=== PATIENT | female | born 1940 | race Caucasian/White ===

== ENCOUNTER 2017-11-17 08:43 | Observation (INO) ==
[2017-11-17] MEDS ORDERED: Aspirin 81 MG TAB.CHEW PO STA (09:00)
--- NOTE | 2017-11-17 09:06 | Emergency Department Note ---
Disposition Clinical Impression: Chest pain, Bronchitis Disposition: Admitted As Inpatient Condition: Fair Referrals: Chiquita Lee CNP [Primary Care Provider] - Forms: ED Satisfaction Letter Time of Disposition: 09:37 Chest Pain HPI - General Chief Complaint: ED Chest Pain Stated Complaint: chest pressure Time Seen by Provider: 11/17/17 08:49 Source: patient Mode of arrival: ambulatory Limitations: no limitations Vital Signs Reviewed: Yes Nursing Notes Reviewed: Yes - History of Present Illness HPI Narrative: Patient is a 77-year-old female with a past medical history of hypertension presents the ED with chief complaint cough and chest pain. Patient states that she has had an intermittent cough for approximately 7 days. States she was seen at urgent care yesterday and told she did not have pneumonia. Patient is discharged home with doxycycline, and his own and Tessalon Perles. States she has not filled these medications yet. Patient returned to our ER today secondary to having worsening chest pain this time on the left side and radiating down her left arm. She denies any shortness of breath, wheezing, stridor, abd pain, nausea, vomiting, diaphoresis, fever. Does report subjective chills. States she went to urgent care yesterday because she was concerned that she could possibly have pneumonia. States she was diagnosed with pneumonia in September 2017 and had similar symptoms. Pt complaint: chest pain, other (cough) Onset (ago): hour(s) Duration: constant Pain Location: left chest Severity: moderate Severity scale (1-10): 4 Quality: dull, other ("discomfort") Pain Radiation: LUE Improves with: nothing Worsens with: nothing Associated symptoms: Reports: cough. Denies: nausea, vomiting, diaphoresis, dyspnea, sense of impending doom, syncope, palpitations, fever, leg swelling Treatments prior to arrival chest pain: none - Related Data On Oral Contraceptives: No Home Medications Medication Instructions Recorded Confirmed Cholecalciferol (D-3) [Vitamin D] 1,000 unit PO DAILY 10/27/16 12/20/16 Cyanocobalamin (B-12) [Vitamin B12] 1 ml IJ QMONTH 10/27/16 12/20/16 Lisinopril [Zestril] 10 mg PO QAM 10/27/16 12/20/16 Lisinopril [Zestril] 20 mg PO QPM 10/27/16 12/20/16 amLODIPine [Norvasc] 5 mg PO QPM 10/27/16 12/20/16 cloNIDine HCl [CloNIDine HCl] 0.1 mg PO DAILY PRN 10/27/16 12/20/16 Calcium Carbonate/Vitamin D3 1 each PO DAILY 12/20/16 12/20/16 [Calcium 500 + Vit D Caplet] Previous Rx's Medication Instructions Recorded Pantoprazole Sodium [Protonix] 40 mg PO DAILY #30 tablet. 10/28/16 Azithromycin [Azithromycin 6-Tab 250 mg PO PER PKG DI #6 tab 09/11/17 Pack] Benzonatate [Tessalon] 200 mg PO TID PRN #30 capsule 09/11/17 GuaiFENesin ER [Mucinex] 1,200 mg PO BID #20 tbbp.12hr 09/11/17 Dicyclomine [Bentyl] 20 mg PO QID PRN #56 capsule 11/10/17 Benzonatate [Tessalon] 200 mg PO TID PRN #20 capsule 11/16/17 Doxycycline 100 mg PO BID #14 capsule 11/16/17 predniSONE [PredniSONE] 20 mg PO BID #10 tablet 11/16/17 Allergies Allergy/AdvReac Type Severity Reaction Status Date / Time Amoxicillin Allergy Difficulty Verified 11/16/17 18:55 Breathing iodine Allergy Rash Verified 11/16/17 18:55 gabapentin AdvReac Dizziness Verified 11/16/17 18:55 All systems ED: reviewed and negative except as stated. Review of Systems: As Per HPI Constitutional: Denies: fever, chills, weakness Cardiovascular: Reports: chest pain. Denies: palpitations, dyspnea on exertion , edema, syncope, paroxysmal nocturnal dyspnea Respiratory: Reports: cough. Denies: dyspnea, wheezes, hemoptysis Gastrointestinal: Denies: abdominal pain, nausea, vomiting, diarrhea Musculoskeletal: Denies: back pain, neck pain Integumentary: Denies: rash Neurological: Denies: headache, weakness, numbness, paresthesias, confusion Chest Pain PMH - Past Medical History Medical history: Reports: non-contributory, hypertension Surgical history: Reports: no surgical history Psychiatric history: Reports: no psych history INDUSTRIAL RENDERER history: Reports: no INDUSTRIAL RENDERER history - Social History Smoking Status: Never smoker Alcohol use: Reports: none Drug use: Reports: none Physical Exam - General Limitations: no limitations General appearance: alert, in no apparent distress - Head Head exam: normal inspection - Eye Eye exam: Present: normal appearance - ENT ENT exam: mucous membranes moist - Neck Neck exam: Present: normal inspection, full ROM, trachea midline. Absent: tenderness - Chest Chest inspection: Present: normal inspection, symmetric chest wall rise. Absent : tenderness - Respiratory Respiratory exam: Present: normal lung sounds bilaterally. Absent: respiratory distress, wheezes, stridor, accessory muscle use - Cardiovascular Cardiovascular exam: Present: regular rate, normal rhythm, normal heart sounds - Abdominal Exam Abdominal exam: Present: soft, Non-Tender, normal bowel sounds - Extremities Exam Extremities exam: Present: normal inspection. Absent: pedal edema - Expanded Lower Extremity Exam Gait: observed and normal - Back Exam Back exam: Present: normal inspection, full ROM. Absent: tenderness - Neurological Exam Neurological exam: Present: alert, oriented X3, CN II-XII intact, normal gait - Psychiatric Psychiatric exam: Present: normal affect, normal mood - Skin Skin exam: Present: warm, dry, intact, normal color. Absent: rash, cyanosis, diaphoresis Course Course Narrative: Patient is a 77-year-old female with a past medical history of hypertension that presents the ED with chief complaint cough and chest pain. Patient states that she has had an intermittent cough for approximately 7 days. States she was seen at urgent care yesterday and told she did not have pneumonia. Patient is discharged home with doxycycline, and his own and Tessalon Perles. States she has not filled these medications yet. Patient returned to our ER today secondary to having worsening chest pain and this time on the left side and radiating down her left arm. She denies any shortness of breath, wheezing, stridor, abd pain, nausea, vomiting, diaphoresis, fever. Does report subjective chills. States she went to urgent care yesterday because she was concerned that she could possibly have pneumonia. States she was diagnosed with pneumonia in September 2017 and had similar symptoms. Patient was seen and examined upon arrival. Patient is a very well/nontoxic appearing 77-year-old female. Vital stable. Afebrile. Alert and oriented 3. Appears in no acute distress. Head normocephalic. Eyes normal inspection. Extraocular movements intact. ENT within normal limits. Neck supple, full range of motion, nontender. Heart RRR. Lungs CTAB. No wheezing, stridor, retractions or any signs of respiratory distress/compromise. Abdomen soft, nontender. Back normal inspection, nontender. Extremities within normal limits. No pedal edema. Neuro no focal neurological deficits noted on exam. Reviewed chest x-ray from yesterday which showed no acute cardiopulmonary abnormalities. Cardiac workup initiated. 324 mg ASA chewable tablet given. Plan to reevaluate. She does not want anything for pain at this time Discussed case with Dr. Andrew. He is aware of patient. Pt had a nuclear stress test in 10/2016 was negative for ischemia. EKG sinus bradycardia. No changes from previous EKG done on 10/27/16 Troponin negative. Plan to admit patient to medicine for chest pain rule out. Pt agrees with treatment plan. Dr. Lopez had [id number] time with patient and agrees with assessment and treatment plan. Dr. Salvador accepted patient. No other requests at this time. Vital Signs Temperature 97.7 F 11/17/17 08:45 Pulse Rate 62 11/17/17 08:45 Respiratory Rate 18 11/17/17 08:45 Blood Pressure 171/91 11/17/17 08:45 O2 Sat by Pulse Oximetry 99 11/17/17 08:45 Temperature 97.7 F 11/17/17 08:45 Pulse Rate 62 11/17/17 09:40 Respiratory Rate 14 11/17/17 09:40 Blood Pressure 199/89 11/17/17 09:40 O2 Sat by Pulse Oximetry 99 11/17/17 09:40 Oxygen Delivery Oxygen Delivery Room Air Chest Pain - Medical Records Medical records reviewed: Yes I reviewed the patient's medical records. - Lab Data Lab results reviewed: Yes I reviewed the patient's lab results. Result diagrams: 11/17/17 09:17 11/17/17 09:17 Lab Results 11/17/17 11/17/17 11/17/17 Range/Units 09:17 09:17 09:17 WBC 5.3 (4.3-11.1) K/mcL RBC 4.09 (3.82-4.97) M/mcL Hgb 12.7 (11.5-15.4) g/dL Hct 39.2 (35.3-44.9) % MCV 95.8 (83.0-100.0) fL MCH 31.1 (28.0-33.3) pg MCHC 32.4 (31.6-35.5) g/dL RDW 12.2 (11.5-14.5) % Plt Count 212 (140-400) K/mcL MPV 9.1 L (9.4-12.4) fL Immature Gran % 0.2 (0-4) % Seg Neutrophils % 62.4 % Lymphocytes % 26.5 % Monocytes % 9.4 % Eosinophils % 1.1 % Basophils % 0.4 % Neutrophils # 3.3 (1.6-8.9) K/mcL Lymphocytes # 1.4 (0.6-4.6) K/mcL Monocytes # 0.5 (0.0-1.3) K/mcL Eosinophils # 0.1 (0.0-0.6) K/mcL Basophils # 0.0 (0.0-0.2) K/mcL PT 10.2 (9.4-12.1) Seconds INR 1.0 APTT 29.8 (26.0-36.0) Seconds Sodium 138 (136-145) mEq/L Potassium 4.5 (3.5-5.1) mEq/L Chloride 104 (98-107) mEq/L Carbon Dioxide 30 H (23-29) mEq/L BUN 12 (8-23) mg/dL Creatinine 0.73 (0.60-1.20) mg/dL Est GFR ( Amer) > 60 (> 60) Est GFR (Non-Af Amer) > 60 (> 60) BUN/Creatinine Ratio 16 (6-26) Glucose 99 (70-105) mg/dL Calculated Osmolality 286 (280-300) Calcium 9.6 (8.6-10.3) mg/dL Troponin I (< 0.04) ng/mL 11/17/17 Range/Units 09:17 WBC (4.3-11.1) K/mcL RBC (3.82-4.97) M/mcL Hgb (11.5-15.4) g/dL Hct (35.3-44.9) % MCV (83.0-100.0) fL MCH (28.0-33.3) pg MCHC (31.6-35.5) g/dL RDW (11.5-14.5) % Plt Count (140-400) K/mcL MPV (9.4-12.4) fL Immature Gran % (0-4) % Seg Neutrophils % % Lymphocytes % % Monocytes % % Eosinophils % % Basophils % % Neutrophils # (1.6-8.9) K/mcL Lymphocytes # (0.6-4.6) K/mcL Monocytes # (0.0-1.3) K/mcL Eosinophils # (0.0-0.6) K/mcL Basophils # (0.0-0.2) K/mcL PT (9.4-12.1) Seconds INR APTT (26.0-36.0) Seconds Sodium (136-145) mEq/L Potassium (3.5-5.1) mEq/L Chloride (98-107) mEq/L Carbon Dioxide (23-29) mEq/L BUN (8-23) mg/dL Creatinine (0.60-1.20) mg/dL Est GFR ( Amer) (> 60) Est GFR (Non-Af Amer) (> 60) BUN/Creatinine Ratio (6-26) Glucose (70-105) mg/dL Calculated Osmolality (280-300) Calcium (8.6-10.3) mg/dL Troponin I < 0.03 (< 0.04) ng/mL - Radiology Data Radiology results reviewed: Yes I reviewed the patient's radiology results. - EKG Data EKG attestation: Yes I reviewed and interpreted this EKG. EKG shows normal: sinus rhythm Rate: bradycardia Rhythm: NSR [place]/QRS: normal When compared to previous EKG there are: no significant changes Interpretation: no acute changes, normal EKG Heart Score - Score History: Slightly Suspicious EKG: Normal Age: Greater than 65 Risk Factors: 1-2 risk factors Troponin: Less than normal limit HEART Score Total: 3
--- NOTE | 2017-11-17 09:06 | Emergency Department Note ---
Disposition Clinical Impression: Chest pain, Bronchitis Disposition: Admitted As Inpatient Condition: Fair General Adult HPI - General Chief complaint: ED Chest Pain Stated complaint: chest pressure Time Seen by Provider: 11/17/17 08:49 Source: patient Limitations: no limitations - History of Present Illness Pain Scale: 4 - Related Data Home Medications Medication Instructions Recorded Confirmed Cholecalciferol (D-3) [Vitamin D] 1,000 unit PO DAILY 10/27/16 11/17/17 Cyanocobalamin (B-12) [Vitamin B12] 1 ml IJ QMONTH 10/27/16 11/17/17 Lisinopril [Zestril] 40 mg PO QPM 10/27/16 11/17/17 cloNIDine HCl [CloNIDine HCl] 0.1 mg PO DAILY 10/27/16 11/17/17 Calcium Carbonate/Vitamin D3 1 tab PO DAILY 12/20/16 11/17/17 [Calcium 500 + Vit D Caplet] LORazepam [Ativan] 0.5 mg PO BID PRN 11/17/17 11/17/17 Previous Rx's Medication Instructions Recorded Dicyclomine [Bentyl] 20 mg PO QID PRN #56 capsule 11/10/17 Allergies Allergy/AdvReac Type Severity Reaction Status Date / Time Amoxicillin Allergy Difficulty Verified 11/16/17 18:55 Breathing iodine Allergy Rash Verified 11/16/17 18:55 gabapentin AdvReac Dizziness Verified 11/16/17 18:55 Past Medical History - Past Medical History Medical history: Reports: non-contributory, hypertension Surgical history: Reports: no surgical history Psychiatric history: Reports: no psych history RAW MATERIAL HANDLER history: Reports: no RAW MATERIAL HANDLER history - Social History Smoking Status: Never smoker Smokeless Tobacco Status: No Alcohol use: Reports: none Drug use: Reports: none Physical Exam - General Limitations: no limitations General appearance: alert Course Vital Signs Temperature 97.7 F 11/17/17 08:45 Pulse Rate 62 11/17/17 08:45 Respiratory Rate 18 11/17/17 08:45 Blood Pressure 171/91 11/17/17 08:45 O2 Sat by Pulse Oximetry 99 11/17/17 08:45 Temperature 97.7 F 11/17/17 08:45 Pulse Rate 64 11/17/17 10:29 Respiratory Rate 14 11/17/17 10:29 Blood Pressure 166/74 11/17/17 10:29 O2 Sat by Pulse Oximetry 98 11/17/17 10:29 Oxygen Delivery Oxygen Delivery Room Air Medical Decision Making - Lab Data Result diagrams: 11/17/17 09:17 11/17/17 09:17 Lab Results 11/17/17 11/17/17 11/17/17 Range/Units 09:17 09:17 09:17 WBC 5.3 (4.3-11.1) K/mcL RBC 4.09 (3.82-4.97) M/mcL Hgb 12.7 (11.5-15.4) g/dL Hct 39.2 (35.3-44.9) % MCV 95.8 (83.0-100.0) fL MCH 31.1 (28.0-33.3) pg MCHC 32.4 (31.6-35.5) g/dL RDW 12.2 (11.5-14.5) % Plt Count 212 (140-400) K/mcL MPV 9.1 L (9.4-12.4) fL Immature Gran % 0.2 (0-4) % Seg Neutrophils % 62.4 % Lymphocytes % 26.5 % Monocytes % 9.4 % Eosinophils % 1.1 % Basophils % 0.4 % Neutrophils # 3.3 (1.6-8.9) K/mcL Lymphocytes # 1.4 (0.6-4.6) K/mcL Monocytes # 0.5 (0.0-1.3) K/mcL Eosinophils # 0.1 (0.0-0.6) K/mcL Basophils # 0.0 (0.0-0.2) K/mcL PT 10.2 (9.4-12.1) Seconds INR 1.0 APTT 29.8 (26.0-36.0) Seconds Sodium 138 (136-145) mEq/L Potassium 4.5 (3.5-5.1) mEq/L Chloride 104 (98-107) mEq/L Carbon Dioxide 30 H (23-29) mEq/L BUN 12 (8-23) mg/dL Creatinine 0.73 (0.60-1.20) mg/dL Est GFR ( Amer) > 60 (> 60) Est GFR (Non-Af Amer) > 60 (> 60) BUN/Creatinine Ratio 16 (6-26) Glucose 99 (70-105) mg/dL Calculated Osmolality 286 (280-300) Calcium 9.6 (8.6-10.3) mg/dL Troponin I (< 0.04) ng/mL 11/17/17 Range/Units 09:17 WBC (4.3-11.1) K/mcL RBC (3.82-4.97) M/mcL Hgb (11.5-15.4) g/dL Hct (35.3-44.9) % MCV (83.0-100.0) fL MCH (28.0-33.3) pg MCHC (31.6-35.5) g/dL RDW (11.5-14.5) % Plt Count (140-400) K/mcL MPV (9.4-12.4) fL Immature Gran % (0-4) % Seg Neutrophils % % Lymphocytes % % Monocytes % % Eosinophils % % Basophils % % Neutrophils # (1.6-8.9) K/mcL Lymphocytes # (0.6-4.6) K/mcL Monocytes # (0.0-1.3) K/mcL Eosinophils # (0.0-0.6) K/mcL Basophils # (0.0-0.2) K/mcL PT (9.4-12.1) Seconds INR APTT (26.0-36.0) Seconds Sodium (136-145) mEq/L Potassium (3.5-5.1) mEq/L Chloride (98-107) mEq/L Carbon Dioxide (23-29) mEq/L BUN (8-23) mg/dL Creatinine (0.60-1.20) mg/dL Est GFR ( Amer) (> 60) Est GFR (Non-Af Amer) (> 60) BUN/Creatinine Ratio (6-26) Glucose (70-105) mg/dL Calculated Osmolality (280-300) Calcium (8.6-10.3) mg/dL Troponin I < 0.03 (< 0.04) ng/mL Attestation Statement - Attestation Attestation: For this encounter, I have reviewed the MASH GRINDER or PA documentation, treatment plan, and medical decision making; and I have had face to face time with this patient. [id number] time provided Patient arrives complaining of chest discomfort. Patient seen in conjunction with appendectomy the physician equal opportunity assistant. ECG reviewed by me
[2017-11-17 09:23] LABS: Basophils % 0.4 %; Eosinophils # 0.1 K/mcL (0.0-0.6); Eosinophils % 1.1 %; Hematocrit 39.2 % (35.3-44.9); Hemoglobin 12.7 g/dL (11.5-15.4); Immature Granulocytes % 0.2 % (0-4); Lymphocytes # 1.4 K/mcL (0.6-4.6); Lymphocytes % 26.5 %; Mean Corpuscular HGB Conc 32.4 g/dL (31.6-35.5); Mean Corpuscular Hemoglobin 31.1 pg (28.0-33.3); Mean Corpuscular Volume 95.8 fL (83.0-100.0); Mean Platelet Volume 9.1 fL (9.4-12.4); Monocytes # 0.5 K/mcL (0.0-1.3); Monocytes % 9.4 %; Neutrophils # 3.3 K/mcL (1.6-8.9); Platelet Count 212 K/mcL (140-400); Red Blood Count 4.09 M/mcL (3.82-4.97); Red Cell Distribution Width 12.2 % (11.5-14.5); Segmented Neutrophils % 62.4 %
[2017-11-17 09:42] LABS: BUN/Creatinine Ratio 16 (6-26); Blood Urea Nitrogen 12 mg/dL (8-23); Calcium 9.6 mg/dL (8.6-10.3); Carbon Dioxide 30 mEq/L (23-29); Chloride 104 mEq/L (98-107); Glucose 99 mg/dL (70-105); Osmolality,Calculated 286 (280-300); Potassium 4.5 mEq/L (3.5-5.1); Sodium 138 mEq/L (136-145); eGFR For African Americans > 60 (> 60); eGFR For Non-African Americans > 60 (> 60)
[2017-11-17 09:54] LABS: Prothrombin Time 10.2 Seconds (9.4-12.1)
[2017-11-17 09:57] LABS: Activated Partial Thrombo Time 29.8 Seconds (26.0-36.0)
--- NOTE | 2017-11-17 11:42 | Internal Med History&Physical ---
Date of Encounter: 11/17/17 Time of Encounter: 11:38 Assessment and Plan (1) Chest pain Current visit: Yes Status: Acute Chest pain with some typical and some atypical characteristics. Had stress test last year which was negative there is no need for repeat stress test will consult cardiology for follow evaluation or at least OP follow-up Qualifiers: Chest pain type: precordial pain Qualified Code(s): R07.2 - Precordial pain (2) GERD (gastroesophageal reflux disease) Current visit: No Status: Chronic chronic Qualifiers: Esophagitis presence: without esophagitis Qualified Code(s): K21.9 - Gastro -esophageal reflux disease without esophagitis (3) Hypercholesteremia Current visit: No Status: Chronic Chronic will recheck in a.m. (4) Hypertension Current visit: No Status: Chronic Chronic uncontrolled we will adjust her medication Qualifiers: Hypertension type: unspecified secondary hypertension Qualified Code(s): I15.9 - Secondary hypertension, unspecified; I15 - Secondary hypertension (5) Osteoporosis Current visit: No Status: Chronic Chronic Qualifiers: Osteoporosis type: age-related Presence of current pathological fracture: without current pathological fracture Qualified Code(s): M81.0 - Age-related osteoporosis without current pathological fracture Internal Medicine - H&P: HPI Chief complaint: chest pain Admitted From: Emergency Dept Plans for Post Hospital Care: Home History of present illness: Ms. Pichardo is a 77 year old female Patient with history of hypertension, GERD, ostioporosis patient was evaluated last year in October for chest pain had a nuclear stress negative for ischemia and EF was 70% echo was also normal patient with diagnosed in September with pneumonia she had a recent evaluation chest x-ray was normal patient having a cough then developed chest pain describes as discomfort in the chest going to the back of her neck and down the left arm she says she took aspirin and went to bed and happen again today she was concerned and came to the emergency room EKG is unremarkable troponin is negative patient was admitted for further cardiac evaluation. Past Med Surg Social Fam HX - Past Medical History Medical history: non-contributory, hypertension Psychiatric history: no psych history - Past Surgical History Surgical History: no surgical history - Social History Smoking Status: Never smoker Smokeless Tobacco Status: No Alcohol use: none Drug use: none Internal Medicine - H&P: Meds Cholecalciferol (D-3) [Vitamin D] 1,000 unit PO DAILY 10/27/16 [History] Cyanocobalamin (B-12) [Vitamin B12] 1 ml IJ QMONTH 10/27/16 [History] Lisinopril [Zestril] 40 mg PO QPM 10/27/16 [History] cloNIDine HCl [CloNIDine HCl] 0.1 mg PO DAILY 10/27/16 [History] Calcium Carbonate/Vitamin D3 [Calcium 500 + Vit D Caplet] 1 tab PO DAILY [History] Dicyclomine [Bentyl] 20 mg PO QID PRN #56 capsule 11/10/17 [Rx] LORazepam [Ativan] 0.5 mg PO BID PRN 11/17/17 [History] 3 Allergy/AdvReac Type Severity Reaction Status Date / Time Amoxicillin Allergy Difficulty Verified 11/16/17 18:55 Breathing iodine Allergy Rash Verified 11/16/17 18:55 gabapentin AdvReac Dizziness Verified 11/16/17 18:55 All Systems PM: A 10-system review of systems was performed and is negative for pertinent findings except as documented above in the HPI. - Constitutional Constitutional: no chills, no fever(s), no night sweats - EENT Eyes: no change in vision, no discharge, no pain, no photophobia Ears: no ear discharge, no ear pain, no tinnitus Nose, mouth and throat: no dysphagia, no nasal discharge, no neck pain, no sore throat - Cardiovascular Cardiovascular ROS IM: chest pain - Respiratory Respiratory: no cough, no dyspnea, no wheezing, no excessive phlegm production - Gastrointestinal Gastrointestinal: no abdominal pain, no diarrhea, no hematemesis, no hematochezia, no melena, no nausea, no vomiting - Constitutional Vitals: Temp Pulse Resp BP Pulse Ox 97.7 F 64 14 166/74 98 11/17/17 08:45 11/17/17 10:29 11/17/17 10:29 11/17/17 10:29 11/17/17 10:29 - Head Head exam: Present: atraumatic, normocephalic - Eye Eye exam: Present: PERRL, conjuntiva pink, sclera anicteric Pupils: Present: PERRL - Neck Neck exam general surgery: Present: supple, trachea midline. Absent: lymphadenopathy - Respiratory Respiratory exam: Present: CTAB. Absent: accessory muscle use, rales, rhonchi, wheezes - Cardiovascular Cardiovascular exam: Present: RRR, +S1, +S2. Absent: diastolic murmur, gallop, rubs, systolic murmur - GI/Abdominal GI/Abdominal exam: Present: normal bowel sounds, soft, no peritoneal signs. Absent: distended, tenderness - Extremities Exam Extremities exam: Present: warm, radial pulses palpable and symmetrical. Absent : calf tenderness, cyanotic, pedal edema - Neurological Exam Neurological exam: Present: CN II-XII intact, oriented X3, no focal deficits. Absent: pronater drift, facial droop, speech deficit - Skin Skin exam: Present: dry, intact Internal Med - H&P Results - Labs CBC & Chem 7: 11/17/17 09:17 11/17/17 09:17
[2017-11-17] MEDS ORDERED: traMADol 50 MG TABLET PO PRN (11:49)
[2017-11-17] MEDS ORDERED: Acetaminophen 325 MG TABLET PO PRN (11:49)
[2017-11-17] MEDS ORDERED: Naloxone 0.4 MG/ML INJ IVP PRN (11:49)
[2017-11-17] MEDS ORDERED: *HR* LORazepam 0.5 MG TABLET PO PRN (11:51)
[2017-11-17] MEDS: cloNIDine HCl 0.1 MG TABLET PO SCH ×2 (14:10→20:00)
[2017-11-17] MEDS ORDERED: Lisinopril 20 MG TABLET PO SCH (18:00)
[2017-11-18 04:05] LABS: Chol/HDL Ratio 2.4 (0-4.9); Magnesium 2.1 mg/dL (1.6-2.6)
[2017-11-18 06:47] VITALS: BP 154/71
[2017-11-18] MEDS ORDERED: Cholecalciferol (D-3) 1,000 UNIT TABLET PO SCH (09:00)
[2017-11-18] MEDS ORDERED: Isosorbide MONOnitrate (24 HR) 30 MG TAB.ER.24H PO SCH (09:00)
--- NOTE | 2017-11-18 10:35 | Cardiology Consult Note ---
Date of Encounter: 11/18/17 Time of Encounter: 10:33 Assessment and Plan (1) Chest pain Current Visit: Yes Status: Acute Very atypical for angina with negative LUKE. No further cardiac testing needed. Qualifiers: Chest pain type: precordial pain Qualified Code(s): R07.2 - Precordial pain Discussion w patient/family: The assessment and plan as outlined above was discussed with the patient and/or family members who expressed understanding and agreement. All questions were answered. Thank you for involving us in the care of your patient. Please call with any questions. History of Present Illness Consult date: 11/18/17 Requesting physician: Annabelle Thompson Consult reason: Chest pain Chief complaint: Chest pain History of present illness: Ms. Pichardo is a 77 year old female presents with very atypical chest pain. Symptoms occured at rest, improved with exercise and were very brief. Past Med Surg Social Fam HX - Past Medical History Medical history: non-contributory, hypertension Psychiatric history: no psych history - Past Surgical History Surgical History: no surgical history - Social History Smoking Status: Never smoker Smokeless Tobacco Status: No Alcohol use: none Drug use: none - Family History Mother Living Status: Age at : 92 Cause of : CHF, colon cancer Hx Family Cardiac Disorders: Yes (hypotensive, CHF) Hx Family Respiratory Disorders: No Hx Family Cancer: Yes (colon cancer) Hx Family GI Disorders: No Hx Family Genitourinary Disorders: No Hx Family Endocrine Disorder: No Hx Family Musculoskeletal Disorders: No Hx Family Neuromuscular Disorders: No Hx Family Neurologic Disorders: No Hx Family HEENT Disorders: No Hx Family Autoimmune Disorders: No Hx Family Reproductive Disorders: No Hx Family Psychosocial Disorders: No Hx Family Medical Disorders: No Father Living Status: Age at : 48 Cause of : heart, war . Hx Family Cardiac Disorders: Yes Hx Family Respiratory Disorders: No Hx Family Cancer: No Hx Family GI Disorders: No Hx Family Genitourinary Disorders: No Hx Family Endocrine Disorder: No Hx Family Musculoskeletal Disorders: No Hx Family Neuromuscular Disorders: No Hx Family Neurologic Disorders: No Hx Family HEENT Disorders: No Hx Family Autoimmune Disorders: No Hx Family Reproductive Disorders: No Hx Family Psychosocial Disorders: No Hx Family Medical Disorders: No Medications and Allergies Cholecalciferol (D-3) [Vitamin D] 1,000 unit PO DAILY 10/27/16 [History] Cyanocobalamin (B-12) [Vitamin B12] 1 ml IJ QMONTH 10/27/16 [History] Lisinopril [Zestril] 40 mg PO QPM 10/27/16 [History] cloNIDine HCl [CloNIDine HCl] 0.1 mg PO DAILY 10/27/16 [History] Calcium Carbonate/Vitamin D3 [Calcium 500 + Vit D Caplet] 1 tab PO DAILY [History] Dicyclomine [Bentyl] 20 mg PO QID PRN #56 capsule 11/10/17 [Rx] LORazepam [Ativan] 0.5 mg PO BID PRN 11/17/17 [History] 3 Allergy/AdvReac Type Severity Reaction Status Date / Time Amoxicillin Allergy Difficulty Verified 11/16/17 18:55 Breathing iodine Allergy Rash Verified 11/16/17 18:55 gabapentin AdvReac Dizziness Verified 11/16/17 18:55 All Systems Review: A 10-system review of systems was performed and is negative for pertinent findings except as documented above in the HPI. Physical Examination Vital Signs, Last 4 Hours Temp Pulse Resp BP Pulse Ox 11/18/17 06:45 98.1 F 67 16 154/71 95 General: Conversant, No Apparent Distress HEENT: Atraumatic, Normocephaly, Mucus Membranes Moist Neck: No JVD, Normal carotid pulses Cardiac: Reg Rate and Rhythm, Normal S1 and S2, No Murmur Lungs: Normal Breath Sounds, No Wheeze, Rales, Rhonchi Neuro: Alert and responsive, No focal deficits noted Abdomen: Soft, Non-Tender Skin: No rashes noted on visualized skin Musculoskeletal: No Chest Wall Tenderness Results 11/17/17 09:17 11/17/17 09:17 Lab Results 11/17/17 11/17/17 11/18/17 12:02 17:47 03:28 Magnesium Troponin I < 0.03 < 0.03 < 0.03 B-Natriuretic Peptide 11/18/17 11/18/17 03:28 03:28 Magnesium 2.1 Troponin I B-Natriuretic Peptide 109 H - EKG Interpretation EKG results cardiology: other (No acute ST or T wave changes) Consult Discharge Plan - Plan Referrals: Chiquita Lee, VICTORIAN LITERATURE PROFESSOR [Primary Care Provider] -
[2017-11-18] MEDS: cloNIDine HCl 0.1 MG TABLET PO SCH ×2 (11:08→16:00)
--- NOTE | 2017-11-18 15:51 | Discharge Summary ---
Date of Encounter: 11/18/17 Time of Encounter: 15:49 - Discharge Diagnosis (1) Chest pain Priority: Primary Status: Acute Comments: Patient had developed chest pain last night and again today. She was evaluated last year for chest pain and had a nuclear stress test which was negative for any ischemia. EF was 70% echo was also normal. She has had 3 troponins which were all negative. No ST-T wave abnormalities. Patient was seen by cardiology who else very atypical for angina with negative LUKE. No further cardiac testing needed. Patient does have a history of GERD. Advised patient to take PPI and to follow-up with PCP Qualifiers: Chest pain type: precordial pain Qualified Code(s): R07.2 - Precordial pain (2) GERD (gastroesophageal reflux disease) Priority: Secondary Status: Chronic Comments: Appears to be chronic-advised patient to PPI and follow-up with PCP Qualifiers: Esophagitis presence: without esophagitis Qualified Code(s): K21.9 - Gastro -esophageal reflux disease without esophagitis - Discharge Medications Home Medications: Cholecalciferol (D-3) [Vitamin D] 1,000 unit PO DAILY 10/27/16 [History] Cyanocobalamin (B-12) [Vitamin B12] 1 ml IJ QMONTH 10/27/16 [History] Lisinopril [Zestril] 40 mg PO QPM 10/27/16 [History] cloNIDine HCl [CloNIDine HCl] 0.1 mg PO DAILY 10/27/16 [History] Calcium Carbonate/Vitamin D3 [Calcium 500 + Vit D Caplet] 1 tab PO DAILY [History] Dicyclomine [Bentyl] 20 mg PO QID PRN #56 capsule 11/10/17 [Rx] LORazepam [Ativan] 0.5 mg PO BID PRN 11/17/17 [History] Allergies/Adverse Reactions: 3 Allergy/AdvReac Type Severity Reaction Status Date / Time Amoxicillin Allergy Difficulty Verified 11/16/17 18:55 Breathing iodine Allergy Rash Verified 11/16/17 18:55 gabapentin AdvReac Dizziness Verified 11/16/17 18:55 Date of admission: 11/17/17 10:20 Primary care physician: Chiquita Lee CNP Consults: 11/17/17 11:50 Consult to Physician [CONS] Routine Consulting Provider: Triston Henriquez Reason for Consult: chest pain Time Notified: 11:51 Call Completed: Yes Discharging clinician: Tabitha Honeycutt Anticipated date of discharge: 11/18/17 - Patient Status Disposition: Home, Self-Care Condition: Fair Functional capacity at discharge: independent ambulation Overall status at discharge: patient is back to baseline - Discharge Instructions Instructions: Chest Pain (DC), Heart Healthy Diet (DC) Follow Up With: Chiquita Lee, FOOD SCIENTIST [Primary Care Provider] - (Please call for a follow up appointment as soon as possible with in 7 days of discharge. ) Additional Instructions: Follow-up appointments: If there is not an appointment listed below, please call your physician and schedule a follow-up appointment. If you have congestive heart failure and your symptoms return, make an appointment with your physician. Medication List: Carry an up to date list of medications you are taking at all time. We have given you an updated medication list including any new medications that you have been prescribed. Please provide that list to your primary provider Symptoms: If your condition changes or you experience any of the following symptoms, notify your physician immediately: Unusual or worsening pain, fever, persistent nausea and vomiting, bleeding, increase in swelling (especially in your legs), sudden weight gain, extreme dizziness, chest pain, increased drainage or redness from a wound or incision. Go to the emergency department if you experience a problem with breathing. Weights: If you have a history of swelling or shortness of breath, weigh yourself daily and notify your physician if you have a weight gain of two or more pounds in one day or 5 or more pounds in a week. If you experience any of the warning signs for stroke: Sudden numbness or weakness of the face, arm or leg; especially on one side of the body, sudden confusion, trouble speaking or understanding, sudden trouble seeing in one or both eyes, sudden trouble walking, dizziness, loss of balance or coordination, sudden sever headache with no cause; Call 911 or go to the emergency room. Stroke is a medical emergency. Some risk factors for stroke: Age, cigarette smoking, diabetes, excessive alcohol consumption, family history , high blood pressure, overweight, physical inactivity, prior stroke, heart attack, diagnosis of carotid artery stenosis or other artery disease. If you smoke, STOP: Smoking or tobacco use significantly increases your risk of heart and lung disease. Your chance of disease greatly increases if you continue to smoke. For more information, call the [place] tobacco quit line for smoking cessation QUIT-NOW ( ) - Diet and Activity Activity: resume usual activities as tolerated Diet: low fat, low cholesterol Hospital course: Ms. Pichardo is a 77 year old female with past medical history of GERD osteoporosis hypertension. Patient experienced chest pain last night that radiated down her neck and left arm she did pass her to bed it reoccurred again today she became concerned due to the ER for evaluation EKG was unremarkable as is troponin were negative. She had a nuclear cardiac stress test in October of last year which was negative for ischemia EF was 70% on echo. She was seen by cardiology who advised no further cardiac testing required. Patient is to be discharged home advised patient to take PPI for any gastric reflux I's patient to follow-up with PCP after discharge she is hemodynamically stable at this time Time spent discussing smoking cessation with patient: 3 to 10 minutes - Time Spent with Patient Total time spent providing and/or coordinating discharge services: - Constitutional Vitals: Temp Pulse Resp BP Pulse Ox 98.1 F 67 16 154/71 95 11/18/17 06:45 11/18/17 06:45 11/18/17 06:45 11/18/17 06:45 11/18/17 06:45 General appearance: Present: A&O X 3 - Head Head exam: Present: atraumatic, normocephalic - Eye Eye exam: Present: PERRL, conjuntiva pink, sclera anicteric Pupils: Present: PERRL - Respiratory Respiratory exam: Present: CTAB. Absent: accessory muscle use, rales, rhonchi, wheezes - Cardiovascular Cardiovascular exam: Present: RRR, +S1, +S2. Absent: diastolic murmur, gallop, rubs, systolic murmur - GI/Abdominal GI/Abdominal exam: Present: normal bowel sounds, soft, no peritoneal signs. Absent: distended, tenderness - Extremities Exam Extremities exam: Present: warm, radial pulses palpable and symmetrical. Absent : calf tenderness, cyanotic, pedal edema - Neurological Exam Neurological exam: Present: CN II-XII intact, oriented X3, no focal deficits. Absent: pronater drift, facial droop, speech deficit - Skin Skin exam: Present: dry, intact
--- NOTE | 2017-11-20 19:22 | Electrocardiograph Report ---
[address] [place] [address] Test Date: 2017-11-17 Pat Name: Mona Pichardo Department: 102 Room: 3B64 Gender: F Safemaker: : 1940 Requested By: Oliva Oglesby Order Number: [id number] Reading MD: Lukas Andrew MD Measurements Intervals Miles Rate: 56 P: 82 MT: 137 QRS: 47 QRSD: 84 T: 67 QT: 462 QTc: 453 Interpretive Statements SINUS BRADYCARDIA LEFT ATRIAL ENLARGEMENT Electronically Signed On 11-20-2017 19:21:19 EST by Lukas Andrew MD
== END 2017-11-18 16:20 | disposition home or self-care (01) ==
LOC: EMEROO 08:43 → 3BNU 08:43
PROVIDERS: ADMIT Internal Medicine Cardiovascular Disease; ATTEND Registered Nurse

== ENCOUNTER 2019-05-10 22:51 | Observation (INO) ==
[2019-05-10] MEDS ORDERED: Isovue-370 500 ML BOTTLE IVP ONE (22:55)
[2019-05-10] MEDS ORDERED: 0.9 % Sodium Chloride 1,000 ML IVC ONE (22:56)
[2019-05-10] MEDS ORDERED: methylPREDNISolone 125 MG/2 ML VIAL IVP ONE (22:56)
[2019-05-10] MEDS ORDERED: Metoclopramide 10 MG/2 ML VIAL IVP ONE (23:03)
--- NOTE | 2019-05-10 23:03 | Emergency Department Note ---
Disposition Clinical Impression: TIA (transient ischemic attack) Headache Qualifiers: Headache type: unspecified Headache chronicity pattern: unspecified pattern Intractability: not intractable Qualified Code(s): R51 - Headache Disposition: Admitted As Inpatient Condition: Good Time of Disposition: 01:30 General Adult HPI - General Chief complaint: ED Neuro Symptoms/Deficit Stated complaint: right vision change, right hand numbness Time Seen by Provider: 05/10/19 22:54 Source: patient, family Limitations: no limitations Nursing Notes Reviewed: Yes Vital Signs Reviewed: Yes - History of Present Illness HPI Narrative: 78-year-old female presents emergency department with concern for right-sided headache with bilateral blurry vision and right palm numbness and tingling 30 minutes prior to arrival. Patient states that she currently has no issues with her vision at this time, and reports only a little bit of the intermittent numbness and tingling of the right palm at this time. She states that she still has headache. Does have a history of headaches, but this is a little bit different and characteristics as she typically does not have the vision changes with them. Patient reports history of having carotid stenosis and hypertension. Pain Scale: 0 - Related Data Home Medications Medication Instructions Recorded Confirmed Bifidobacterium Infantis [Align] 1 tab PO DAILY 12/15/18 05/11/19 Losartan Potassium 50 mg PO BID 12/15/18 05/11/19 Omeprazole [PriLOSEC] 20 mg PO DAILY 12/15/18 05/11/19 Atorvastatin [Lipitor] 10 mg PO HS 05/11/19 05/11/19 cloNIDine HCl [CloNIDine HCl] 0.1 mg PO DAILY 05/11/19 05/11/19 Previous Rx's Medication Instructions Recorded Acetaminophen [Tylenol] 500 mg PO Q6HR PRN #20 tablet 12/15/18 Allergies Allergy/AdvReac Type Severity Reaction Status Date / Time Amoxicillin Allergy Difficulty Verified 05/11/19 00:27 Breathing doxycycline Allergy Rash Verified 05/11/19 00:27 iodine Allergy Rash Verified 05/11/19 00:27 gabapentin AdvReac Dizziness Verified 05/11/19 00:27 All systems ED: reviewed and negative except as stated. Review of Systems: As Per HPI Constitutional: Denies: fever Cardiovascular: Denies: chest pain Respiratory: Denies: cough, dyspnea Gastrointestinal: Denies: abdominal pain, nausea, vomiting Genitourinary: Denies: urgency, dysuria, frequency Musculoskeletal: Denies: back pain Neurological: Reports: headache, weakness, numbness. Denies: paresthesias, abnormal gait, vertigo Psychiatric: Denies: anxiety Past Medical History - Past Medical History Attestation: Yes The following information was validated with the patient. Medical history: Reports: hypertension, migraine Surgical history: Reports: no surgical history Psychiatric history: Reports: no psych history BLOCK TRIMMER history: Reports: no BLOCK TRIMMER history - Social History Smoking Status: Never smoker Smokeless Tobacco Status: No Alcohol use: Reports: none Drug use: Reports: none Physical Exam - General Limitations: no limitations General appearance: alert, in no apparent distress - Head Head exam: normocephalic - Eye Eye exam: Present: EOMI - ENT ENT exam: mucous membranes moist - Neck Neck exam: Present: trachea midline - Chest Chest inspection: Present: symmetric chest wall rise - Respiratory Respiratory exam: Present: normal lung sounds bilaterally. Absent: respiratory distress, accessory muscle use - Cardiovascular Cardiovascular exam: Present: regular rate, normal rhythm, normal heart sounds - Abdominal Exam Abdominal exam: Present: soft, Non-Tender. Absent: distention, guarding, rebound, rigidity - Extremities Exam Extremities exam: Present: normal capillary refill - Back Exam Back exam: Present: full ROM - Neurological Exam Neurological exam: Present: alert, oriented X3, CN II-XII intact, other (GCS 15, no focal neurologic deficits) - Psychiatric Psychiatric exam: Present: normal affect, normal mood - Skin Skin exam: Present: warm, dry, intact, normal color. Absent: rash Course Vital Signs Temperature 98.1 F 05/10/19 23:01 Pulse Rate 64 05/10/19 23:01 Respiratory Rate 16 05/10/19 23:01 Blood Pressure 216/86 05/10/19 23:01 O2 Sat by Pulse Oximetry 98 05/10/19 23:01 Temperature 98.1 F 05/11/19 10:58 Pulse Rate 75 05/11/19 10:58 Respiratory Rate 16 05/11/19 10:58 Blood Pressure 186/91 05/11/19 10:58 O2 Sat by Pulse Oximetry 95 05/11/19 10:58 Oxygen Delivery Oxygen Delivery Room Air Medical Decision Making - MDM Narrative Medical decision making narrative: 78 year female presents emergency department with concern for possible TIA versus complex migraine. Patient has NIH of [address] angiogram were negative. Discussion with neurology on the phone. They agreed with admission. Patient was provided aspirin here in the emergency department. She was also given migraine cocktail for the headache aspect of her symptoms. Patient currently asymptomatic at time of admission. New acute neurologic abnormality at that time. Angiography CT 05/10/19 22:55 IMPRESSION: Unremarkable CTA of the head and neck. No acute intracranial hemorrhage or mass effect. D/ / Maximiliano Sessions / Maximiliano Sessions Interpreting Provider: Maximiliano Sessions Neck CTA 05/10/19 22:55 IMPRESSION: Unremarkable CTA of the head and neck. No acute intracranial hemorrhage or mass effect. D/ / Maximiliano Sessions / Maximiliano Sessions Interpreting Provider: Maximiliano Sessions - Lab Data Result diagrams: 05/10/19 23:16 05/10/19 23:16 Lab Results 05/10/19 05/10/19 05/10/19 Range/Units 23:16 23:16 23:16 WBC 7.5 (4.3-11.1) K/mcL RBC 3.89 (3.82-4.97) M/mcL Hgb 12.7 (11.5-15.4) g/dL Hct 39.0 (35.3-44.9) % MCV 100.3 H (83.0-100.0) fL MCH 32.6 (28.0-33.3) pg MCHC 32.6 (31.6-35.5) g/dL RDW 12.0 (11.5-14.5) % Plt Count 210 (140-400) K/mcL MPV 9.3 L (9.4-12.4) fL Immature Gran % 0.5 (0-4) % Seg Neutrophils % 47.3 % Lymphocytes % 40.5 % Monocytes % 8.9 % Eosinophils % 2.0 % Basophils % 0.8 % Neutrophils # 3.5 (1.6-8.9) K/mcL Lymphocytes # 3.0 (0.6-4.6) K/mcL Monocytes # 0.7 (0.0-1.3) K/mcL Eosinophils # 0.2 (0.0-0.6) K/mcL Basophils # 0.1 (0.0-0.2) K/mcL Sodium 137 (136-145) mEq/L Potassium 3.8 (3.5-5.1) mEq/L Chloride 106 (98-107) mEq/L Carbon Dioxide 23 (23-29) mEq/L BUN 21 (8-23) mg/dL Creatinine 0.97 (0.60-1.20) mg/dL Est GFR ( Amer) > 60 (> 60) Est GFR (Non-Af Amer) 56 L (> 60) BUN/Creatinine Ratio 22 (6-26) Glucose 102 (70-105) mg/dL Calculated Osmolality 287 (280-300) Calcium 9.1 (8.6-10.3) mg/dL TSH 2.018 (0.340-5.600) mcIU/mL NIH Stroke Scale - Level of Consciousness LOC: Alert - LOC Questions LOC Questions: Answers both correctly - LOC Commands LOC Commands: Performs both correctly - Best Gaze Best Gaze: Normal - Visual Visual: No visual loss - Facial Palsy Facial Palsy: Normal - Motor Arms Motor Arm-Left: No drift for 10 seconds Motor Arm-Right: No drift for 10 seconds - Motor Legs Motor Leg-Left: No drift for 5 seconds Motor Leg-Right: No drift for 5 seconds - Limb Ataxia Limb Ataxia: Normal, No Ataxia - Sensory Sensory: Normal - Best Language Best Language: No aphasia - Dysarthria Dysarthria: Normal - Extinction and Inattention Extinction and Inattention: Normal - NIHSS Total Score NIHSS Total Score: 0
[2019-05-10 23:40] LABS: Basophils # 0.1 K/mcL (0.0-0.2); Basophils % 0.8 %; Eosinophils # 0.2 K/mcL (0.0-0.6); Hemoglobin 12.7 g/dL (11.5-15.4); Immature Granulocytes % 0.5 % (0-4); Lymphocytes % 40.5 %; Mean Corpuscular HGB Conc 32.6 g/dL (31.6-35.5); Mean Corpuscular Hemoglobin 32.6 pg (28.0-33.3); Mean Corpuscular Volume 100.3 fL (83.0-100.0); Mean Platelet Volume 9.3 fL (9.4-12.4); Monocytes # 0.7 K/mcL (0.0-1.3); Monocytes % 8.9 %; Neutrophils # 3.5 K/mcL (1.6-8.9); Platelet Count 210 K/mcL (140-400); Red Blood Count 3.89 M/mcL (3.82-4.97); Segmented Neutrophils % 47.3 %; White Blood Count 7.5 K/mcL (4.3-11.1)
[2019-05-10 23:43] LABS: BUN/Creatinine Ratio 22 (6-26); Blood Urea Nitrogen 21 mg/dL (8-23); Calcium 9.1 mg/dL (8.6-10.3); Carbon Dioxide 23 mEq/L (23-29); Chloride 106 mEq/L (98-107); Glucose 102 mg/dL (70-105); Osmolality,Calculated 287 (280-300); Potassium 3.8 mEq/L (3.5-5.1); Sodium 137 mEq/L (136-145); eGFR For African Americans > 60 (> 60); eGFR For Non-African Americans 56 (> 60)
[2019-05-11] MEDS ORDERED: Aspirin 325 MG TABLET PO ONE (00:54)
--- NOTE | 2019-05-11 01:16 | Emergency Department Note ---
Disposition Clinical Impression: TIA (transient ischemic attack) Headache Qualifiers: Headache type: unspecified Headache chronicity pattern: unspecified pattern Intractability: not intractable Qualified Code(s): R51 - Headache Disposition: Admitted As Inpatient Condition: Good Referrals: Chiquita Lee CNP [Primary Care Provider] - Forms: ED Satisfaction Letter Time of Disposition: 01:11 General Adult HPI - General Chief complaint: ED Neuro Symptoms/Deficit Stated complaint: right vision change, right hand numbness Time Seen by Provider: 05/10/19 22:54 Source: patient, family Limitations: no limitations - History of Present Illness Pain Scale: 0 - Related Data Home Medications Medication Instructions Recorded Confirmed Lisinopril [Zestril] 40 mg PO QPM 10/27/16 05/11/19 Bifidobacterium Infantis [Align] 1 tab PO DAILY 12/15/18 05/11/19 Losartan Potassium 50 mg PO BID 12/15/18 05/11/19 Omeprazole [PriLOSEC] 20 mg PO DAILY 12/15/18 05/11/19 Atorvastatin [Lipitor] 10 mg PO HS 05/11/19 05/11/19 Previous Rx's Medication Instructions Recorded Acetaminophen [Tylenol] 500 mg PO Q6HR PRN #20 tablet 12/15/18 Allergies Allergy/AdvReac Type Severity Reaction Status Date / Time Amoxicillin Allergy Difficulty Verified 05/11/19 00:27 Breathing doxycycline Allergy Rash Verified 05/11/19 00:27 iodine Allergy Rash Verified 05/11/19 00:27 gabapentin AdvReac Dizziness Verified 05/11/19 00:27 Constitutional: Denies: fever Cardiovascular: Denies: chest pain Respiratory: Denies: cough, dyspnea Gastrointestinal: Denies: abdominal pain, nausea, vomiting Genitourinary: Denies: urgency, dysuria, frequency Musculoskeletal: Denies: back pain Neurological: Reports: headache, weakness, numbness. Denies: paresthesias, abnormal gait, vertigo Psychiatric: Denies: anxiety Past Medical History - Past Medical History Medical history: Reports: hypertension, migraine Surgical history: Reports: no surgical history Psychiatric history: Reports: no psych history MUSTANGER history: Reports: no MUSTANGER history - Social History Smoking Status: Never smoker Smokeless Tobacco Status: No Alcohol use: Reports: none Drug use: Reports: none Physical Exam - General Limitations: no limitations General appearance: alert, in no apparent distress Course - Consultations Consultation #1: discussed case with Dr. mendez who recommends admission to the hospital and ASA therspy Time: 00:55 Vital Signs Temperature 98.1 F 05/10/19 23:01 Pulse Rate 64 05/10/19 23:01 Respiratory Rate 16 05/10/19 23:01 Blood Pressure 216/86 05/10/19 23:01 O2 Sat by Pulse Oximetry 98 05/10/19 23:01 Temperature 98.1 F 05/10/19 23:01 Pulse Rate 92 05/10/19 23:05 Respiratory Rate 20 05/10/19 23:05 Blood Pressure 216/86 05/10/19 23:05 O2 Sat by Pulse Oximetry 99 05/10/19 23:48 Oxygen Delivery Oxygen Delivery Room Air Medical Decision Making - Lab Data Result diagrams: 05/10/19 23:16 05/10/19 23:16 Lab Results 05/10/19 05/10/19 05/10/19 Range/Units 23:16 23:16 23:16 WBC 7.5 (4.3-11.1) K/mcL RBC 3.89 (3.82-4.97) M/mcL Hgb 12.7 (11.5-15.4) g/dL Hct 39.0 (35.3-44.9) % MCV 100.3 H (83.0-100.0) fL MCH 32.6 (28.0-33.3) pg MCHC 32.6 (31.6-35.5) g/dL RDW 12.0 (11.5-14.5) % Plt Count 210 (140-400) K/mcL MPV 9.3 L (9.4-12.4) fL Immature Gran % 0.5 (0-4) % Seg Neutrophils % 47.3 % Lymphocytes % 40.5 % Monocytes % 8.9 % Eosinophils % 2.0 % Basophils % 0.8 % Neutrophils # 3.5 (1.6-8.9) K/mcL Lymphocytes # 3.0 (0.6-4.6) K/mcL Monocytes # 0.7 (0.0-1.3) K/mcL Eosinophils # 0.2 (0.0-0.6) K/mcL Basophils # 0.1 (0.0-0.2) K/mcL Sodium 137 (136-145) mEq/L Potassium 3.8 (3.5-5.1) mEq/L Chloride 106 (98-107) mEq/L Carbon Dioxide 23 (23-29) mEq/L BUN 21 (8-23) mg/dL Creatinine 0.97 (0.60-1.20) mg/dL Est GFR ( Amer) > 60 (> 60) Est GFR (Non-Af Amer) 56 L (> 60) BUN/Creatinine Ratio 22 (6-26) Glucose 102 (70-105) mg/dL Calculated Osmolality 287 (280-300) Calcium 9.1 (8.6-10.3) mg/dL TSH 2.018 (0.340-5.600) mcIU/mL Attestation Statement - Attestation Attestation: I reviewed the residents documentation and agree with the residents assessment and plan of care. I have personally had face to face time with the patient. (Brief History, Brief Exam, and MDM) I personally supervised and was present for the cortez/critical portions of the following procedures completed by the resident: (add procedures performed here). 78 sebastian old fmale presentsto the ED with complaints of right eye blurriness and right hand numbness. Patients symptoms started about 30 [employer]SEK[employer]PER to the ED. PAtinet CTA head and neck are otherwise negative. Will require admission to the hospital
[2019-05-11] MEDS ORDERED: Naloxone 0.4 MG/ML INJ IVP PRN (04:38)
[2019-05-11] MEDS ORDERED: Acetaminophen 325 MG TABLET PO PRN (04:38)
[2019-05-11] MEDS ORDERED: Ondansetron 4 MG/2 ML VIAL IVP PRN (04:38)
[2019-05-11] MEDS ORDERED: *HR* HYDROcodone/Acet 5/325 mg TABLET PO PRN (04:38)
--- NOTE | 2019-05-11 04:54 | Internal Med History&Physical ---
Date of Encounter: 05/11/19 Time of Encounter: 04:47 Internal Medicine - H&P: HPI Chief complaint: headache; right hand/arm numbness Admitted From: Emergency Dept Plans for Post Hospital Care: Home History of present illness: Ms. Pichardo is a 78 year old female who presents with right-sided hand and arm numbness, paresthesias, headache, and blurred vision. Symptoms started this evening and awoke her from sleep. She came to ER for evaluation, but by the time she arrived, her symptoms resolved completely. Workup in ER was negative. However, she was admitted to hospitalist service for TIA/stroke workup. Upon my assessment of the patient, she remains symptom-free. She has no further headache. She has no neurologic deficits. She has no chest pain or shortness of breath. Her blood pressure is quite elevated, but I double checked it manually myself on 2 separate occasions. It is running 160/90. Patient denies any history of diabetes, hypoglycemia, new medications, thyroid problems, or any unintentional weight loss. She denies any prior TIA/stroke. However, she does note that she has had difficult to control blood pressure for quite some time. Past Med Surg Social Fam HX - Past Medical History Attestation: Yes The following information was validated with the patient. Source: patient, old records reviewed Medical history: GERD, hyperlipidemia, hypertension, migraine, osteoporosis Additional medical history: IBS Psychiatric history: no psych history - Past Surgical History Surgical History: orthopedic, other Additional surgical history: lamenectomy - Social History Smoking Status: Never smoker Smokeless Tobacco Status: No Alcohol use: none Drug use: none Current living situation: Home, With Family Activity Level: Independent ambulation Recent Out of Country Travel Within the Last 8 Weeks: No - Family History Mother Living Status: Hx Family Cardiac Disorders: Yes (hypotensive, CHF) Hx Family Respiratory Disorders: No Hx Family Cancer: Yes (colon cancer) Hx Family GI Disorders: No Hx Family Endocrine Disorder: No Hx Family Neuromuscular Disorders: No Hx Family Neurologic Disorders: No Hx Family HEENT Disorders: No Hx Family Autoimmune Disorders: No Father Living Status: Hx Family Cardiac Disorders: Yes Hx Family Respiratory Disorders: No Hx Family Cancer: No Hx Family GI Disorders: No Hx Family Endocrine Disorder: No Hx Family Neuromuscular Disorders: No Hx Family Neurologic Disorders: No Hx Family HEENT Disorders: No Hx Family Autoimmune Disorders: No Internal Medicine - H&P: Meds Acetaminophen [Tylenol] 500 mg PO Q6HR PRN #20 tablet 12/15/18 [Rx] Bifidobacterium Infantis [Align] 1 tab PO DAILY 12/15/18 [History] Losartan Potassium 50 mg PO BID 12/15/18 [History] Omeprazole [PriLOSEC] 20 mg PO DAILY 12/15/18 [History] Atorvastatin [Lipitor] 10 mg PO HS 05/11/19 [History] cloNIDine HCl [CloNIDine HCl] 0.1 mg PO DAILY 05/11/19 [History] Allergy/AdvReac Type Severity Reaction Status Date / Time Amoxicillin Allergy Difficulty Verified 05/11/19 00:27 Breathing doxycycline Allergy Rash Verified 05/11/19 00:27 iodine Allergy Rash Verified 05/11/19 00:27 gabapentin AdvReac Dizziness Verified 05/11/19 00:27 - Constitutional Constitutional: no chills, no fever(s), no night sweats - EENT Eyes: blurry vision, no diplopia Ears: no ear pain, no tinnitus Nose, mouth and throat: no nasal congestion, no sinus pressure, no sore throat - Cardiovascular Cardiovascular ROS IM: no chest pain, no dyspnea, no dyspnea on exertion, no orthopnea, no paroxysmal nocturnal dyspnea - Respiratory Respiratory: no cough, no chest congestion, no excessive phlegm production - Gastrointestinal Gastrointestinal: no abdominal pain, no diarrhea, no hematemesis, no hematochezia, no melena, no vomiting - Genitourinary Genitourinary: no dysuria, no flank pain, no hematuria - Musculoskeletal Musculoskeletal ROS IM: no arthralgias, no back pain - Integumentary Integumentary IM: no rash, no jaundice - Neurological Neurological ROS: numbness, paresthesias, no convulsions, no dizziness, no focal weakness, no frequent falls, no headache(s) Additional comments: right hand/arm numbness/parasthesias -- resolved - Psychiatric Psychiatric: no anxiety, no depression - Endocrine Endocrine IM: no cold intolerance, no heat intolerance, no polydipsia, no polyphagia, no polyuria - Allergic/Immunologic Allergic/Immunologic: no GI upset with certain foods - Constitutional Vitals: Temp Pulse Resp BP Pulse Ox 97.7 F 82 14 216/83 97 05/11/19 02:30 05/11/19 02:30 05/11/19 02:30 05/11/19 02:30 05/11/19 02:48 General appearance: Present: cooperative, A&O X 3, no acute distress, answers questions appropriately Exam: NAD - Head Head exam: Present: atraumatic, normal inspection - Eye Eye exam: Present: EOMI, PERRL. Absent: scleral icterus Pupils: Present: normal accommodation - ENT ENT exam: Present: mucous membranes dry, normal exam, normal external ear exam, normal oropharynx - Neck Neck exam general surgery: Present: full ROM. Absent: lymphadenopathy, tenderness, nuchal rigidity, thyromegaly - Respiratory Respiratory exam: Present: CTAB. Absent: chest wall tenderness, rales, rhonchi, wheezes - Cardiovascular Cardiovascular exam: Present: RRR, +S1, +S2. Absent: diastolic murmur, systolic murmur - GI/Abdominal GI/Abdominal exam: Present: normal bowel sounds, soft. Absent: guarding, hepatomegaly, mass, rebound, splenomegaly, tenderness - Extremities Exam Extremities exam: Present: full ROM, normal capillary refill. Absent: calf tenderness, joint swelling, pedal edema - Back Exam Back exam: Absent: CVA tenderness (L), CVA tenderness (R) - Neurological Exam Neurological exam: Present: alert, CN II-XII intact, oriented X3, reflexes normal, no focal deficits, strengths equal and symetr throughout. Absent: motor sensory deficit - Psychiatric Psychiatric exam: Present: normal affect, normal mood - Skin Skin exam: Present: dry, intact, warm Internal Med - H&P Results - Labs CBC & Chem 7: 05/10/19 23:16 05/10/19 23:16 Labs: Short CBC 05/10/19 Range/Units 23:16 WBC 7.5 (4.3-11.1) K/mcL Hgb 12.7 (11.5-15.4) g/dL Hct 39.0 (35.3-44.9) % Plt Count 210 (140-400) K/mcL Neutrophils # 3.5 (1.6-8.9) K/mcL BMP 05/10/19 23:16 Sodium 137 Potassium 3.8 Chloride 106 Carbon Dioxide 23 BUN 21 Creatinine 0.97 Glucose 102 Calcium 9.1 - EKG Data -: EKG Interpreted by Myself - EKG Data Prior EKG available for review: no EKG comments: 05/11/19 05:03 NSR; no acute ST-T changes - Impressions ITS Impressions Angiography CT 05/10/19 22:55 IMPRESSION: Unremarkable CTA of the head and neck. No acute intracranial hemorrhage or mass effect. D/ / Maximiliano Sessions / Maximiliano Sessions Interpreting Provider: Maximiliano Sessions Neck CTA 05/10/19 22:55 IMPRESSION: Unremarkable CTA of the head and neck. No acute intracranial hemorrhage or mass effect. D/ / Maximiliano Sessions / Maximiliano Sessions Interpreting Provider: Maximiliano Sessions - Diagnostic Studies CT scan - head Status: image reviewed by me (negative) - Assessment and Plan (1) TIA (transient ischemic attack) Current Visit: Yes Status: Acute Assessment and plan: 1. Will proceed with stroke work-up protocol. 2. Neurochecks and hemodynamic monitoring closely. 3. MRI bran; ECHO. 4. Patient already on ASA and Lipitor. (2) Hypertension Current Visit: Yes Status: Chronic Assessment and plan: 1. Allow permissive HTN in the setting of CVA/TIA. 2. Monitor BP closely and treat if > 180. 3. Resume home BP meds in a day or two if work-up is negative. Qualifiers: Hypertension type: essential hypertension Qualified Code(s): I10 - Essential (primary) hypertension (3) DVT prophylaxis Current Visit: Yes Status: Acute Assessment and plan: 1. EPCD's.
[2019-05-11] MEDS ORDERED: Aspirin Enteric Coated 81 MG Tablet PO SCH ×2 (09:00→21:00)
[2019-05-11] MEDS ORDERED: cloNIDine HCl 0.1 MG TABLET PO SCH ×3 (12:45→18:00)
--- NOTE | 2019-05-11 14:26 | Neurology - Consult Note ---
Date of Encounter: 05/11/19 Time of Encounter: 14:22 Assessment and Plan (1) TIA (transient ischemic attack) Current Visit: Yes Status: Acute I am convinced that she is experienced a TIA, very likely secondary to vasospasm of the lenticulostriate arteries on the left associated with severe hypertension. Her blood pressure has been labile since admission. On the nurse just inform you moment ago that her systolic was 207. At this point since the MRI did not reveal evidence of acute infarct I am in favor of normalizing her blood pressure now. Echocardiogram is pending. She can be discharged home if her blood pressures normalized. Otherwise I will reevaluate her at your request. I would maintain her on her current regimen of antiplatelet therapy which is aspirin. History of Present Illness HPI: The chart was reviewed, the patient was seen and examined. Ms. 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 She informed me that yesterday she first noticed numbness in the palm of the right hand well as a slight headache and blurred vision. The headache escalated over time and ultimately she was brought to the ED for further assessment. She does have a history of migraine headaches however is adamant that this headache was not consistent with her migraines. Denied any weakness of the right arm or leg, denied any speech difficulty denied any facial droop. Symptoms resolve spon taneously in less than 1 hour. However upon presentation to the ER her blood pressure was 216/86. Her blood pressure has been known to be labile. Presently she takes clonidine when necessary according to whenever her blood pressure is in the evening hours of the day. She also has a history of hyperlipidemia and hypertension and migraine headaches. MRI scan of the brain was negative for evidence of an acute infarct however there is a bit of chronic ischemic changes present. The head and neck were both normal. Past Med Surg Social Fam HX - Past Medical History Medical history: GERD, hyperlipidemia, hypertension, migraine, osteoporosis Additional medical history: IBS Psychiatric history: no psych history - Past Surgical History Surgical History: orthopedic, other Additional surgical history: lamenectomy - Social History Smoking Status: Never smoker Smokeless Tobacco Status: No Alcohol use: none Drug use: none - Family History Mother Living Status: Hx Family Cardiac Disorders: Yes (hypotensive, CHF) Hx Family Respiratory Disorders: No Hx Family Cancer: Yes (colon cancer) Hx Family GI Disorders: No Hx Family Endocrine Disorder: No Hx Family Neuromuscular Disorders: No Hx Family Neurologic Disorders: No Hx Family HEENT Disorders: No Hx Family Autoimmune Disorders: No Father Living Status: Hx Family Cardiac Disorders: Yes Hx Family Respiratory Disorders: No Hx Family Cancer: No Hx Family GI Disorders: No Hx Family Endocrine Disorder: No Hx Family Neuromuscular Disorders: No Hx Family Neurologic Disorders: No Hx Family HEENT Disorders: No Hx Family Autoimmune Disorders: No Medications and Allergies Acetaminophen [Tylenol] 500 mg PO Q6HR PRN #20 tablet 12/15/18 [Rx] Bifidobacterium Infantis [Align] 1 tab PO DAILY 12/15/18 [History] Losartan Potassium 50 mg PO BID 12/15/18 [History] Omeprazole [PriLOSEC] 20 mg PO DAILY 12/15/18 [History] Atorvastatin [Lipitor] 10 mg PO HS 05/11/19 [History] cloNIDine HCl [CloNIDine HCl] 0.1 mg PO DAILY 05/11/19 [History] Allergy/AdvReac Type Severity Reaction Status Date / Time Amoxicillin Allergy Difficulty Verified 05/11/19 00:27 Breathing doxycycline Allergy Rash Verified 05/11/19 00:27 iodine Allergy Rash Verified 05/11/19 00:27 gabapentin AdvReac Dizziness Verified 05/11/19 00:27 All Systems: The remainder of the systems were reviewed and are negative Review of Systems: The balance of the systems review is negative. Physical Examination - Vital Signs Vital Signs: Initial Vital Signs Temp Pulse Resp BP Pulse Ox 98.1 F 64 16 216/86 98 05/10/19 23:01 05/10/19 23:01 05/10/19 23:01 05/10/19 23:01 05/10/19 23:01 - Exam Exam: General Examination: *CONSTITUTIONAL: normal *GENERAL APPEARANCE OF PATIENT appears healthy and well groomed *EYES: pupils equal, round, reactive to light and accommodation, conjunctiva clear without masses or ulcerations, fundi normal. *CARDIOVASCULAR no peripheral edema, distal temperature normal, dorsalis pedis pulses normal. 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 *MUSCLE TONE IN THE UPPER AND LOWER EXTREMITIES normal. No abnormal movements, fasciculations or atrophy identified. Neurological: *ORIENTATION to time and place *RECURRENT AND REMOTE MEMORY intact *ATTENTION AND CONCENTRATION are normal *LANGUAGE FUNCTION no significant aphasia or dysarthia was noted. *FUND OF KNOWLEDGE aware of current events, past history, vocabulary *MENTAL attention span and concentration normal. *CN II optic fundi were normal, no papilledema noted. *CN III,IV, PERRLA extraocular eye movements were full, no nystagmus and no ptosis noted. *CN V shows normal sensation and jaw opens symmetrically. *CN VII shows normal facial movement symmetrically, upper and lower bilaterally. *CN VIII shows no significant hearing loss on examination in the office. *CN IX,,X palate elevated symmetrically and normal gag reflex was noted. *CN XI normal strength in the sternocleidomastoid muscles, symmetrical shoulder shrugging. *CN XII tongue protruded in the midline, with normal strength and movement. *SENSORY EXAMINATION pinprick sensation intact, and light touch(vibration sense). *REFLEXES: deep tendon reflexes were normal and symmetrical , grade 2/4 diffusely, no pathological reflexes were noted. *CEREBELLAR TESTING normal finger to nose, heel/knee/argueta, and tandem walk. *PAIN LEVEL Results - Laboratory Findings CBC and BMP: 05/10/19 23:16 05/10/19 23:16 Abnormal lab findings: Abnormal lab results MCV 100.3 fL (83.0-100.0) H 05/10/19 23:16 MPV 9.3 fL (9.4-12.4) L 05/10/19 23:16 Est GFR (Non-Af Amer) 56 (> 60) L 05/10/19 23:16 Consult Discharge Plan - Plan Referrals: Chiquita Lee, CLIENT DEVELOPMENT MANAGER [Primary Care Provider] -
[2019-05-11 16:19] VITALS: BP 127/53
--- NOTE | 2019-05-11 16:58 | Discharge Summary ---
- NOTES TO OUTPATIENT PROVIDER Notes to Outpatient Provider: Presented with TIA. MRI negative. PLease follow up on atorvastatin dose. Migh need to be ncreased. BLood pressure labile, could be the etiolgoy for the TIA. Date of Encounter: 05/11/19 Time of Encounter: 10:00 - Discharge Diagnosis (1) Hypertension Priority: Secondary Status: Chronic Qualifiers: Hypertension type: essential hypertension Qualified Code(s): I10 - Essential (primary) hypertension (2) TIA (transient ischemic attack) Priority: Primary Status: Acute (3) DVT prophylaxis Priority: Secondary Status: Acute Hospital course: Ms. Pichardo is a 78 year old female with above medical history significant for hypertension, hyperlipidemia, presented to the hospital with right-sided hand and arm numbness, paresthesias, headache, and blurred vision. Patient's symptoms resolved within an hour of the presentation. Laboratory workup was normal. Blood pressure was elevated. CT scan of the head were negative for any bleeding. CT scan angiogram did not did not reveal any critical stenosis. MRI of the head were negative for any acute infarct or stroke. Neurology was consulted. As per neurology, likely etiology for the TIA seems to be labile hypertension causing the vasospasm of the lenticulostriate arteries on the left. Patient echogram is still pending. Patient wants to go home. Discussed with t he patient that echocardiogram may not. Until tomorrow. There is a very minimal chance of finding cardioembolic phenomenon causing the stroke as her EKG was noemal and there is no hx of atrial firillation. Discussed with the patient if there are any adverse findigns on the echo, she will be called in the morning to discuss the results and come to the hospital if required. Patient is understanding and agrees with the plan. Patient is also at bedside who was counseled about the current status of the patient and pending results. Patient will be continued on aspirin. Patient is currently taking 40 mg of atorvastatin. Discussed with the patient that she needs to increase her dose of atorvastatin. Patient is adamant. She will discuss the dose of atorvastatin with her PCP and only then she will increase the dose of atorvastatin. She has an appointmetn with the PCP on Sunday, will defer the decisoon for the dosage of atorvastatin to the PCP. Patient is currently hemodynamically stable and is being discharged. - Time Spent with Patient Total time spent providing and/or coordinating discharge services:35 mintes - Discharge Medications Prescriptions: New Aspirin Enteric Coated [Aspirin EC] 81 mg PO HS tablet. Continued Losartan Potassium 50 mg PO BID Omeprazole [PriLOSEC] 20 mg PO DAILY Bifidobacterium Infantis [Align] 1 tab PO DAILY Acetaminophen [Tylenol] 500 mg PO Q6HR PRN #20 tablet PRN Reason: Pain Atorvastatin [Lipitor] 10 mg PO HS cloNIDine HCl [CloNIDine HCl] 0.1 mg PO DAILY Home Medications: Acetaminophen [Tylenol] 500 mg PO Q6HR PRN #20 tablet 12/15/18 [Rx] Bifidobacterium Infantis [Align] 1 tab PO DAILY 12/15/18 [History] Losartan Potassium 50 mg PO BID 12/15/18 [History] Omeprazole [PriLOSEC] 20 mg PO DAILY 12/15/18 [History] Aspirin Enteric Coated [Aspirin EC] 81 mg PO HS tablet. 05/11/19 [Rx] Atorvastatin [Lipitor] 10 mg PO HS 05/11/19 [History] cloNIDine HCl [CloNIDine HCl] 0.1 mg PO DAILY 05/11/19 [History] Allergies/Adverse Reactions: Allergy/AdvReac Type Severity Reaction Status Date / Time Amoxicillin Allergy Difficulty Verified 05/11/19 00:27 Breathing doxycycline Allergy Rash Verified 05/11/19 00:27 iodine Allergy Rash Verified 05/11/19 00:27 gabapentin AdvReac Dizziness Verified 05/11/19 00:27 Date of admission: 05/11/19 01:32 Primary care physician: Chiquita Lee CNP Consults: 05/11/19 00:55 Consult to Neurology [CONS] Stat Consulting Provider: Neurology [facility] Reason for Consult: TIA r/o CVA Time Notified: 00:56 Call Completed: Yes - Constitutional Vitals: Temp Pulse Resp BP Pulse Ox 97.3 F L 108 16 127/53 95 05/11/19 15:06 05/11/19 15:06 05/11/19 15:06 05/11/19 16:18 05/11/19 15:06 General appearance: Present: cooperative, A&O X 3, no acute distress, answers questions appropriately Exam: General: Alert and oriented, no physical distress, able to follow commands. Respiratory: Normal vesicular breathing, no added sounds, breathing equal in both sides. CVS: Normal heart sounds, no murmurs, no edema. Extremities: No peripheral edema, peripheral pulses intact. Lymph nodes: No lymphadenopathy Gastrointestinal: Soft, nontender abdomen, normal abdominal sounds. No distention noted. Genitourinary: No paravertebral tenderness. Neurological: Alert and oriented. No focal deficits. Cranial nerves II-XII intact. - Patient Status Disposition: Home, Self-Care Condition: Good Functional capacity at discharge: independent ambulation Overall status at discharge: patient is back to baseline - Discharge Instructions Follow Up With: Chiquita Lee SHOP HELPER [Primary Care Provider] - (Appt has been requested. ) - Diet and Activity Activity: increase activity as tolerated Diet: advance to your usual diet
--- NOTE | 2019-05-12 14:40 | Electrocardiograph Report ---
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
== END 2019-05-11 18:01 | disposition home or self-care (01) ==
LOC: EMEROOARM 22:51 → 3BNU 22:51 → SUATTDRO 05-11 01:32 → 3BNU 05-11 01:55
PROVIDERS: ADMIT Family Medicine; ATTEND Internal Medicine